=== PATIENT | female | born 1985 | race Caucasian/White ===

== ENCOUNTER 2017-10-19 02:06 | Emergency (ER) | payer SELFPAY ==
[~2017-10-19] VITALS: Ht 160 cm; Wt 72.6 kg
[~2017-10-19 02:06] MED LIST: ACHYD1T PO; ALBU8.5H2 IH; CODE-54 PO; DCS100C PO; HYDR-757 PO; ONDA2VIA IV; ONDA4TAB8 PO; PREN1TAB19 PO; XARELTO; [UNRECOGNIZED DRUG - CODE] TOP
[2017-10-19] MEDS ORDERED: LACTATED RINGERS 1,000 ML IV ONE (02:19)
[2017-10-19 02:27] LABS: BASOPHILS % (AUTO) 0 % (0-10); EOSINOPHILS # (AUTO) 0.1 10^3/uL (0.0-0.3); EOSINOPHILS % (AUTO) 1 % (0-10); HEMATOCRIT 37 % (35-52); HEMOGLOBIN 13.3 G/DL (11.5-16.0); LYMPHOCYTES # (AUTO) 4.1 X 10^3 (1.0-4.0); LYMPHOCYTES % (AUTO) 50 % (12-44); MEAN CORPUSCULAR HEMOGLOBIN 32 PG (25-34); MEAN CORPUSCULAR HGB CONC 36 G/DL (32-36); MEAN CORPUSCULAR VOLUME 90 FL (80-99); MEAN PLATELET VOLUME 10.5 FL (7.4-10.4); MONOCYTES # (AUTO) 0.5 X 10^3 (0.0-1.0); MONOCYTES % (AUTO) 6 % (0-12); NEUTROPHILS # (AUTO) 3.6 X 10^3 (1.8-7.8); NEUTROPHILS % (AUTO) 43 % (42-75); PLATELET COUNT 215 10^3/uL (130-400); RED BLOOD COUNT 4.15 10^6/uL (4.35-5.85); RED CELL DISTRIBUTION WIDTH 12.8 % (10.0-14.5); WHITE BLOOD COUNT 8.3 10^3/uL (4.3-11.0)
--- NOTE | 2017-10-19 02:40 | ED Trauma-Multisystem ---
General Chief Complaint: Trauma-Non Activation Stated Complaint: HEAD LAC Nursing Triage Note: SEE TRAUMA ASSESSMENT Source of Information: Patient, Caregiver Exam Limitations: Intoxication History of Present Illness Date Seen by Provider: Oct 19, 2017 Time Seen by Provider: 02:15 Initial Comments Here with report of falling out of the OR. Apparently her boyfriend had gone to pick her up and put her in the tract and she fell face first out of the truck onto the ground. Has abrasions to the forehead and a laceration over the bridge of the nose. Reports loss of consciousness for a minute or so after hitting the ground. Denies other injuries. Admits to drinking quite a bit tonight. States her tetanus is up-to-date. Occurred: Just Prior to Arrival (20 minutes ago) Severity: Moderate Pain/Injury Location: Face, Head Method of Injury: Direct Blow, Fall Loss of Consciousness: Brief (Seconds) Associated Symptoms (Fall): No Abdominal Pain, No Chest Pain, Confusion, Headache, Lightheadedness, No Neck Pain, Slurred Speech (alcohol intoxication), No Vision Changes Allergies and Home Medications Allergies Coded Allergies: No Known Drug Allergies (Verified , 06/09/08) Home Medications Chlorhexidine Gluconate 4,000 Ml Solution, 200 ML TOP BID Prescribed by: SASHA AVELAR on 04/06/15 1228 Hydrocodone/Acetaminophen 1 Each Tablet, 1 EACH PO Q4H PRN for PAIN Prescribed by: SASHA AVELAR on 04/06/15 1228 Ondansetron 4 Mg Tab.rapdis, 4 MG PO Q6H PRN for NAUSEA/VOMITING Prescribed by: SASHA AVELAR on 04/06/15 1228 Patient Home Medication List Home Medication List Reviewed: Yes Constitutional: see HPI, No chills, No fever Eyes: No Symptoms Reported Ears: No Symptoms Reported Nose: See HPI, Bloody Discharge, Serosanguinous Discharge Mouth: No Symptoms Reported Throat: No Symptoms to Report Respiratory: no symptoms reported Cardiovascular: No Symptoms Reported Gastrointestinal: No abdominal pain, No nausea, No vomiting Genitourinary: no symptoms reported Musculoskeletal: no symptoms reported Skin: see HPI, lesions, No rash All Other Systems Reviewed Negative Unless Noted: Yes Past Ryyqxgd-Elpmfs-Qxfjhd Hx Patient Social History Alcohol Use: Occasionally Uses Recreational Drug Use: No Smoking Status: Never a Smoker Recent Foreign Travel: No Contact w/Someone Who Travel: No Recent Infectious Disease Expo: No Recent Hopitalizations: No Physical Abuse: No Sexual Abuse: No Mistreated: No Fear: No Immunizations Up To Date Tetanus Booster (TDap): Unknown PED Vaccines UTD: Yes Date of Influenza Vaccine: Mar 29, 2014 Seasonal Allergies Seasonal Allergies: Yes Surgeries History of Surgeries: Yes (wisdom teeth 2009) Surgeries: Tubal Ligation Respiratory History of Respiratory Disorde: Yes Respiratory Disorders: Asthma Cardiovascular History of Cardiac Disorders: No Neurological History of Neurological Disord: No Reproductive System Hx Reproductive Disorders: No Sexually Transmitted Disease: No HIV/AIDS: No Female Reproductive Disorders: Denies AERIAL GUNNER History: Tubal Ligation Gastrointestinal History of Gastrointestinal Di: Yes Gastrointestinal Disorders: Gastroesophageal Reflux, Hemorrhoids, Irritable Bowel Musculoskeletal History of Musculoskeletal Dis: No Endocrine History of Endocrine Disorders: No HEENT Loss of Vision: Denies Hearing Impairment: Denies Cancer History of Cancer: No Psychosocial History of Psychiatric Problem: No Suicide Risk Score: 0 Integumentary History of Skin or Integumenta: No Blood Transfusions History of Blood Disorders: Yes (BLOOD CLOT/dvt) Adverse Reaction to a Blood Tr: No Reviewed Nursing Assessment Reviewed/Agree w Nursing PMH: Yes Family Medical History Family Medial History: Arthritis MATERNAL GDMA MATERNAL GDPA PATERNAL GDMA PATERNAL GDPA Asthma MATERNAL GDMA Glaucoma MATERNAL GDMA Neoplasm MATERNAL GDMA (BREAST AND LUNG- 54 YRS) Respiratory disorder MATERNAL GDMA (COPD AND EMPHYSEMA) Physical Exam Vital Signs Vital Signs - First Documented 10/19/17 02:12 Temp 97.3 Pulse 96 Resp 20 B/P (MAP) 115/84 (94) Pulse Ox 98 O2 Delivery Room Air Temperature (Fahrenheit): 97.3 General Appearance: No Apparent Distress, WD/WN Head: Active Bleeding (oozing wounds to the forehead and nose), Ecchymosis, Other (abrasion to the forehead and nose) Ears, Nose, Throat: Other (2 cm laceration over the bridge of the nose with abrasions to distal part of the nose and forehead) Neck: Full Range of Motion, Normal Inspection, Non Tender, Supple Cardiovascular: Regular Rate, Rhythm, No Murmur Respiratory: Lungs Clear, Normal Breath Sounds Gastrointestinal: Non Tender, Soft Back: Normal Inspection, No CVA Tenderness, No Vertebral Tenderness Extremity: Normal Range of Motion, Non Tender Neurologic/Psychiatric: Alert, Oriented x3 Skin: Ecchymosis, Erythema, Other (abrasions to the face as described above) Adriel Coma Score Best Eye Response ([place]): (4) Open Spontaneously Best Verbal Response ([place]): (5) Oriented Best Motor Response ([place]): (6) Obeys Commands Laceration Repair : Wound Location: Nose Other Wound Location Bridge of nose Wound Length (cm): 2 Wound's Depth, Shape: irregular, flap Irrigated w/ Saline (ccs): 50 Betadine Prep?: No (Hibiclens) Anesthesia: 1% Lidocaine Volume Anesthetic (ccs): 5 Wound Debrided: minimal Suture: Prolene Suture Size: 5-0, 6-0 Number of Sutures: 7 Layer Closure?: 1 Number Deep Layer Sutures: 0 Sterile Dressing Applied?: Yes Progress 3 x 5-0 proline sutures placed to pin flap back in good position and then 4 x 6- 0 Prolene sutures placed to provide good approximation. Tolerated procedure well with no complications. Covered with antibiotic ointment and dressing. Progress/Results/Core Measures Results/Orders Lab Results Laboratory Tests Test 10/19/17 02:20 Range/Units White Blood Count 8.3 4.3-11.0 10^3/uL Red Blood Count 4.15 L 4.35-5.85 10^6/uL Hemoglobin 13.3 11.5-16.0 G/DL Hematocrit 37 35-52 % Mean Corpuscular Volume 90 80-99 FL Mean Corpuscular Hemoglobin 32 25-34 PG Mean Corpuscular Hemoglobin Concent 36 32-36 G/DL Red Cell Distribution Width 12.8 10.0-14.5 % Platelet Count 215 130-400 10^3/uL Mean Platelet Volume 10.5 H 7.4-10.4 FL Neutrophils (%) (Auto) 43 42-75 % Lymphocytes (%) (Auto) 50 H 12-44 % Monocytes (%) (Auto) 6 0-12 % Eosinophils (%) (Auto) 1 0-10 % Basophils (%) (Auto) 0 0-10 % Neutrophils # (Auto) 3.6 1.8-7.8 X 10^3 Lymphocytes # (Auto) 4.1 H 1.0-4.0 X 10^3 Monocytes # (Auto) 0.5 0.0-1.0 X 10^3 Eosinophils # (Auto) 0.1 0.0-0.3 10^3/uL Basophils # (Auto) 0.0 0.0-0.1 10^3/uL Sodium Level 135 135-145 MMOL/L Potassium Level 3.4 L 3.6-5.0 MMOL/L Chloride Level 101 98-107 MMOL/L Carbon Dioxide Level 19 L 21-32 MMOL/L Anion Gap 15 H 5-14 MMOL/L Blood Urea Nitrogen 10 7-18 MG/DL Creatinine 0.78 0.60-1.30 MG/DL Estimat Glomerular Filtration Rate > 60 BUN/Creatinine Ratio 13 Glucose Level 97 70-105 MG/DL Calcium Level 9.3 8.5-10.1 MG/DL Total Bilirubin 0.3 0.1-1.0 MG/DL Aspartate Amino Transf (AST/SGOT) 19 5-34 U/L Alanine Aminotransferase (ALT/SGPT) 18 0-55 U/L Alkaline Phosphatase 51 40-136 U/L Total Protein 7.6 6.4-8.2 GM/DL Albumin 4.6 H 3.2-4.5 GM/DL Serum Test, Qualitative NEGATIVE NEGATIVE Serum Alcohol 263 H <10 MG/DL My Orders Orders - VANESSA HALL MD Ct Head/Face/Cervical Wo (10/19/17 02:19) Alcohol (10/19/17 02:19) Cbc With Automated Diff (10/19/17 02:19) Comprehensive Metabolic Panel (10/19/17 02:19) Hcg,Qualitative Serum (10/19/17 02:19) Saline Lock/Iv-Start (10/19/17 02:19) Lactated Ringers (Lr 1000 Ml Iv Solution (10/19/17 02:19) Let Solution (Let Solution) (10/19/17 03:10) Lidocaine 1% (Xylocaine 1%) (10/19/17 03:15) Medications Given in ED Current Medications Medications Dose Ordered Sig/Rani Route Start Time Stop Time Status Last Admin Dose Admin Lactated Ringer's 1,000 ml @ 0 mls/hr Q0M ONCE IV 10/19/17 02:19 10/19/17 02:21 DC 10/19/17 03:13 1,000 MLS/HR Lidocaine HCl 50 ml ONCE ONCE IJ 10/19/17 03:15 10/19/17 03:16 DC 10/19/17 03:17 50 ML Vital Signs/I&O Vital Sign - Last 12Hours 10/19/17 02:12 Temp 97.3 Pulse 96 Resp 20 B/P (MAP) 115/84 (94) Pulse Ox 98 O2 Delivery Room Air Blood Pressure Mean: 94 Progress Note : Progress Note Seen and evaluated. IV, labs, normal saline [address] head, face and neck ordered. Monitor patient. 0420: CT reports noted. Wound closed by me with good approximation. There are multiple abrasions on the forehead, nose and face including the chin and upper lip. Superficial lacerations noted to the forehead but these are not amiable to suturing. Antibiotic ointment placed over wounds and lacerations cover with dressing. Discharged home with return precautions. Patient verbalize understanding instructions and agreement with plan. Diagnostic Imaging Diagonstic Imaging: CT Plain Films/CT/US/NM/MRI: facial bones, c-spine, head Comments No acute intracranial findings. Small scalp hematoma overlying the frontal bone. Nondisplaced nasal bone fracture. No acute fractures or subluxation of the C-spine noted. Per radiology read. Reviewed: Reviewed Night Hawk Study, Reviewed by Me Departure Impression Impression: Primary Impression: Facial laceration Qualified Codes: S01.81XA - Laceration without foreign body of other part of head, initial encounter Additional Impressions: Head injury Qualified Codes: S09.90XA - Unspecified injury of head, initial encounter Facial abrasion Qualified Codes: S00.81XA - Abrasion of other part of head, initial encounter Disposition: 01 HOME, SELF-CARE Condition: Improved Departure-Patient Inst. Decision time for Depature: 04:22 Referrals: YANELI COLLADO MD (PCP/Family) Primary Care Physician Patient Instructions: Laceration Repair With Stitches (DC), Minor Head Injury ( DC), Skin Abrasions (DC) Add. Discharge Instructions: All discharge instructions reviewed with patient and/or family. Voiced understanding. You may cover wounds with antibiotic ointment twice daily for the next several days and then as needed. You should prevent sunburn to the face and exposure to direct sunlight for the next several months to a year to decrease scarring. Sutures out in 5 days. You may gently wash wounds but do not soak for prolonged periods of time in a bathtub, pool or other body of water. Return for worse pain, fever, vomiting, weakness, breathing problems or other concerns as needed. VANESSA HALL MD Oct 19, 2017 02:40
[2017-10-19 02:47] LABS: ALANINE AMINOTRANSFERASE 18 U/L (0-55); ALBUMIN 4.6 GM/DL (3.2-4.5); ALKALINE PHOSPHATASE 51 U/L (40-136); BILIRUBIN,TOTAL 0.3 MG/DL (0.1-1.0); BUN/CREATININE RATIO 13; CALCIUM 9.3 MG/DL (8.5-10.1); CARBON DIOXIDE 19 MMOL/L (21-32); CHLORIDE 101 MMOL/L (98-107); CREATININE SERUM 0.78 MG/DL (0.60-1.30); GFR ESTIMATED > 60; GLUCOSE 97 MG/DL (70-105); POTASSIUM 3.4 MMOL/L (3.6-5.0); SODIUM 135 MMOL/L (135-145); TOTAL PROTEIN 7.6 GM/DL (6.4-8.2)
[2017-10-19] MEDS ORDERED: L.E.T. SYRINGE 5 ML MM STA (03:10)
[2017-10-19] MEDS ORDERED: LIDOCAINE 1% INJ 50 ML (XYLOCAINE) VIAL IJ ONE (03:15)
[2017-10-19 04:27] VITALS: BP 118/78
--- NOTE | 2017-10-19 07:28 | Diagnostic Imaging Report ---
Clinical indication: Patient fell out of truck and landed face first. Exam: Axial Head CT without IV contrast. Axial Maxillofacial CT scan without IV contrast with sagittal and coronal reformations. Axial CT scan of the cervical spine with sagittal and coronal reformations. Comparison: None. Findings: Head CT: There is no evidence of acute cerebral infarct, intracranial hemorrhage, or gross mass effect. The brain parenchymal volume appears appropriate for patient's age. There is normal carlos-white matter distinction. There is no significant midline shift or herniation. There is no evidence of hydrocephalus. The basal cisterns are unremarkable. Maxillofacial CT: There is a small amount of extracranial soft tissue swelling in the right frontal region and adjacent to the nose. There is a minimally impacted nondisplaced fracture involving the right and left nasal bone region. It appears that there may be soft tissue laceration adjacent to the area, as well. There is no other skull or maxillofacial fracture seen. There are large amounts of fluid and mucosal thickening involving the sphenoid sinus. There is mild mucosal thickening involving ethmoid sinus. There is minimal mucosal thickening involving both maxillary sinuses. Temporal bone structures show no significant abnormality. The orbits and globes are unremarkable. Cervical spine: Is no evidence of acute cervical spine fracture or dislocation. There is no significant bony central spinal canal or neural foraminal narrowing. Visualized upper lung evans are clear. The neck soft tissue structures show no significant abnormality. Impression: 1: There is a nondisplaced nasal bone fracture seen. There is no other skull or maxillofacial fracture. 2: There is extracranial soft tissue swelling in the right frontal region and adjacent to the nose. The orbits and globes are intact. 3: There is no evidence of acute intracranial process or intracranial hemorrhage. 4: There is no acute cervical spine fracture or dislocation. I agree with [employer] report. Dictated by: Dictated on workstation # [id number]
--- OUTSIDE RECORDS SUMMARY | 2017-10-19 08:33 | XMS REPORT | Continuity of Care Document ---
Author Author [facility] Organization [facility] Address Unknown Phone Unavailable Allergies Active Description Code Type Severity Reaction Onset Reported/Identified Relationship to Patient Clinical Status Yes No Known Drug Allergies [id number] Drug Allergy Unknown N/A 06/09/2008 Medications There is no data. Problems Date Dx Coded Attending Type Code Diagnosis Diagnosed By 04/01/2011 Ot 530.81 04/06/2014 YANELI COLLADO MD Ot 664.11 04/06/2014 YANELI COLLADO MD Ot V03.82 04/06/2014 YANELI COLLADO MD Ot V06.1 04/06/2014 YANELI COLLADO MD Ot V27.0 06/02/2014 YANELI COLLADO MD Ot V28.81 09/26/2014 YANELI COLLADO MD Ot 453.40 09/26/2014 YANELI COLLADO MD Ot 453.41 10/10/2014 YANLEI COLLADO MD Ot V28.89 10/10/2014 YANELI COLLADO MD Ot V28.81 11/01/2014 ISABEL SU, VANESSA Alba Ot 719.46 12/19/2014 YANELI COLLADO MD Ot V28.89 12/19/2014 YANELI COLLADO MD Ot V28.81 01/25/2015 YANELI COLLADO MD Ot V12.51 02/03/2015 YANELI COLLADO MD Ot V12.51 04/06/2015 YANELI COLLADO MD Ot V28.89 04/06/2015 YANELI COLLADO MD Ot V28.81 04/06/2015 YANELI COLLADO MD Ot V12.51 04/06/2015 SASHA AVELAR APRN Ot 338.18 04/06/2015 SASHA AVELAR APRN Ot 704.8 04/06/2015 SASHA AVELAR APRN Ot 782.1 08/30/2015 YANELI COLLADO MD Ot V28.89 08/30/2015 YANELI COLLADO MD Ot V28.81 08/30/2015 YANELI COLLADO MD Ot V12.51 08/31/2015 YANELI COLLADO MD Ot R60.0 08/31/2015 YANELI COLLADO MD Ot Z86.718 09/12/2015 YANELI COLLADO MD Ot R60.0 09/12/2015 YANELI COLLADO MD Ot Z86.718 Procedures There is no data. Results There is no data. Encounters ACCT No. Visit Date/Time Discharge Status Pt. Type Provider Facility Loc./Unit Complaint [id number] 08/30/2015 10:52:00 08/30/2015 23:59:59 CLS Outpatient YANELI COLLADO MD [facility] RAD [id number] 04/06/2015 11:27:00 04/06/2015 12:40:00 DIS Emergency SASHA AVELAR APRN [facility] ER [id number] 01/18/2015 11:51:00 01/18/2015 23:59:59 CLS Outpatient YANELI COLLADO MD [facility] RAD [id number] 11/01/2014 08:57:00 11/01/2014 10:28:00 DIS Emergency VANESSA HALL MD [facility] ER [id number] 09/23/2014 21:45:00 09/26/2014 08:16:00 DIS Inpatient YANELI COLLADO MD [facility] 4TH [id number] 04/05/2014 06:09:00 04/06/2014 15:00:00 DIS Inpatient YANELI COLLADO MD [facility] LD [id number] 12/02/2013 12:01:00 12/02/2013 23:59:59 CLS Outpatient YANELI COLLADO MD [facility] RAD [id number] 09/02/2013 13:42:00 09/02/2013 23:59:59 CLS Outpatient TOBIAS SU, YANELI [facility] [id number] 04/01/2011 10:31:00 Document Registration [id number] 04/06/2015 11:27:55 ACT Document Registration
== END 2017-10-19 04:27 | disposition home or self-care (01) ==
LOC: EDUNIT# 02:06 → ER 02:09
DX: S09.90XA Unspecified injury of head, initial encounter (principal); S01.21XA Laceration without foreign body of nose, initial encounter; R40.2142 Coma scale, eyes open, spontaneous, at arrival to emergency department; R40.2252 Coma scale, best verbal response, oriented, at arrival to emergency department; R40.2362 Coma scale, best motor response, obeys commands, at arrival to emergency department; K21.9 Gastro-esophageal reflux disease without esophagitis; J45.909 Unspecified asthma, uncomplicated; Z87.19 Personal history of other diseases of the digestive system; Z98.51 Tubal ligation status; V68.6XXA Passenger in heavy transport vehicle injured in noncollision transport accident in traffic accident, initial encounter
CPT/HCPCS: 12011; 36415; 70450; 70486; 72125; 80053; 80320; 84703; 85025; 96360

== ENCOUNTER 2019-05-16 16:02 | Emergency (ER) | payer SELFPAY ==
[~2019-05-16] VITALS: Ht 160 cm; Wt 77.2 kg
[~2019-05-16 16:02] MED LIST changes: +ACHD5005 PO; +AMOX-355 PO; +HYDR-4226 PO; -HYDR-757 PO
--- NOTE | 2019-05-16 16:06 | NUR ---
ATTEMPT TO CALL PT BACK ET PT NOT IN WAITING ROOM.
[2019-05-16] MEDS ORDERED: NS IV 1000 ML 1,000 ML IV SCH (16:39)
[2019-05-16 16:52] LABS: BASOPHILS # (AUTO) 0.1 10^3/uL (0.0-0.1); BASOPHILS % (AUTO) 1 % (0-10); EOSINOPHILS # (AUTO) 0.1 10^3/uL (0.0-0.3); EOSINOPHILS % (AUTO) 1 % (0-10); HEMATOCRIT 39 % (35-52); HEMOGLOBIN 13.2 G/DL (11.5-16.0); LYMPHOCYTES # (AUTO) 2.2 X 10^3 (1.0-4.0); LYMPHOCYTES % (AUTO) 28 % (12-44); MEAN CORPUSCULAR HEMOGLOBIN 30 PG (25-34); MEAN CORPUSCULAR HGB CONC 34 G/DL (32-36); MEAN CORPUSCULAR VOLUME 91 FL (80-99); MEAN PLATELET VOLUME 9.7 FL (7.4-10.4); MONOCYTES # (AUTO) 0.7 X 10^3 (0.0-1.0); MONOCYTES % (AUTO) 10 % (0-12); NEUTROPHILS # (AUTO) 4.7 X 10^3 (1.8-7.8); NEUTROPHILS % (AUTO) 60 % (42-75); PLATELET COUNT 367 10^3/uL (130-400); RED CELL DISTRIBUTION WIDTH 13.5 % (10.0-14.5); WHITE BLOOD COUNT 7.8 10^3/uL (4.3-11.0)
[2019-05-16] MEDS ORDERED: HOLD METFORMIN - RECEIVED CONTRAST 20 ML VIAL IV SCH (17:00)
[2019-05-16] MEDS ORDERED: CATHETER FLUSH 10 ML SYR IV PRN (17:00)
[2019-05-16] MEDS ORDERED: NS 100 ML (IVPB) BAG IV ONE (17:00)
[2019-05-16] MEDS ORDERED: IOHEXOL 350 MG/ML 100 ML (OMNIPAQUE 350) VIAL IV ONE (17:00)
[2019-05-16 17:10] LABS: ALANINE AMINOTRANSFERASE 87 U/L (0-55); ALBUMIN 3.5 GM/DL (3.2-4.5); ALKALINE PHOSPHATASE 256 U/L (40-136); BILIRUBIN,TOTAL 0.5 MG/DL (0.1-1.0); BUN/CREATININE RATIO 8; CALCIUM 9.4 MG/DL (8.5-10.1); CARBON DIOXIDE 23 MMOL/L (21-32); CHLORIDE 102 MMOL/L (98-107); CREATININE SERUM 0.66 MG/DL (0.60-1.30); GFR ESTIMATED > 60; GLUCOSE 95 MG/DL (70-105); POTASSIUM 3.1 MMOL/L (3.6-5.0); SODIUM 141 MMOL/L (135-145); TOTAL PROTEIN 7.3 GM/DL (6.4-8.2)
[2019-05-16 17:17] LABS: BILIRUBIN,URINE NEGATIVE (NEGATIVE); CLARITY,URINE CLEAR; COLOR,URINE YELLOW; GLUCOSE, URINE (UA) NEGATIVE (NEGATIVE); KETONES,URINE 1+ (NEGATIVE); LEUKOCYTE ESTERASE ,URINE 1+ (NEGATIVE); NITRITE,URINE NEGATIVE (NEGATIVE); PH,URINE 7 (5-9); PROTEIN,URINE 1+ (NEGATIVE)
[2019-05-16 17:23] LABS: BACTERIA,URINE TRACE /HPF; RBC,URINE 0-2 /HPF; WBC,URINE 0-2 /HPF
[2019-05-16] MEDS ORDERED: POTASSIUM CL 10MEQ/50ML IVPB 50 ML IV ONE (17:30)
--- NOTE | 2019-05-16 17:46 | Diagnostic Imaging Report ---
PROCEDURE: CT angiography of the chest with contrast. TECHNIQUE: Multiple contiguous axial images were obtained through the chest after uneventful bolus administration of intravenous contrast. 3D reconstructed CTA MIP acquisitions were also performed. Auto Exposure Controls were utilized during the CT exam to meet ALARA standards for radiation dose reduction. INDICATION: Febrile. Low-grade fever. Chest pain and shortness of breath. FINDINGS: Contrast opacification of the aorta with no evidence of aortic aneurysm or dissection. Pulmonary arteries are well opacified. There are no filling defects to indicate pulmonary emboli. There has been dense consolidated infiltrate with air bronchograms developing in the lower lobes, bilaterally, with moderate bibasilar pleural effusions when compared to the previous CT of the abdomen from 05/11/2019. No mediastinal or hilar adenopathy of pathologic size. No pneumothorax. No bony abnormality. Hepatomegaly with hepatic steatosis noted also some splenomegaly. IMPRESSION: 1. No evidence of pulmonary emboli or aortic dissection. 2. Development of bilateral consolidated lower lobe infiltrate with moderate bilateral pleural effusions. These were not present on CT scan of the abdomen of 05/11/2019. Dictated by: Dictated on workstation # [id number]
--- NOTE | 2019-05-16 17:54 | ED Dyspnea ---
General Chief Complaint: Post OP Complications/Pain Stated Complaint: POST APPY/DIARRHEA/CHILLS Nursing Triage Note: STATES SHE HAD HER APPENDIX OUT ON FRIDAY AND SENT HOME ON FRIDAY. LOW GRADE FEVER SINCE ET TAKING ROUND THE CLOCK IBUPROFEN AND HYDROCODONE. PT STATES SHE HAS BEEN HAVING DIARRHEA ALL DAY TODAY AND FEELS AWFUL. History of Present Illness Date Seen by Provider: May 16, 2019 Time Seen by Provider: 16:15 Initial Comments 33-year-old female presents after having a ruptured appendix and appendectomy on 05/12/19. She reports a history of asthma but no recent need for an inhaler. She reports fever up to 100.4 today. She is taking Hydrocodone (last dose 1000 this morning). She took Ibuprofen at 1400. She is afebrile on presentation here. She reports 2 episodes of diarrhea yesterday and up to 6 episodes of diarrhea today. Timing/Duration: 4-6 Hours Prior Episodes/Possible Cause: No Prior Episodes Associated Symptoms: Fever, Pain (left upper quadrant), Weakness Allergies and Home Medications Allergies Coded Allergies: No Known Drug Allergies (Verified , 06/09/08) Home Medications Albuterol Sulfate 1 Puff Puff, 2 PUFF INH Q4H 1 PUFF = 90 MCG Prescribed by: DELORIS CERVANTES on 05/16/19 1825 Amoxicillin/Potassium Clav 1 Each Tablet, 1 EACH PO TID Prescribed by: DAVION SHEA on 05/13/19 1158 Hydrocodone Bit/Acetaminophen 1 Tab Tab, 1 TAB PO Q6H PRN for PAIN-MODERATE Prescribed by: DAVION SHEA on 05/13/19 1158 Patient Home Medication List Home Medication List Reviewed: Yes Review of Systems Review of Systems Constitutional: no symptoms reported, see HPI Gastrointestinal: see HPI, abdominal pain, diarrhea : No All Other Systems Reviewed Negative Unless Noted: Yes Past Jkrgkhy-Cjrhaw-Iiwuyw Hx Past Med/Social Hx: Reviewed Nursing Past Med/Soc Hx Patient Social History Alcohol Use: Denies Use Recreational Drug Use: No Smoking Status: Never a Smoker Recent Foreign Travel: No Contact w/Someone Who Travel: No Recent Infectious Disease Expo: No Recent Hopitalizations: No Immunizations Up To Date Tetanus Booster (TDap): Unknown PED Vaccines UTD: Yes Date of Influenza Vaccine: Mar 29, 2014 Seasonal Allergies Seasonal Allergies: Yes Past Medical History Surgeries: Yes (wisdom teeth 2010, tubal ligation, nasal, ) Adenoidectomy, Tubal Ligation Respiratory: Yes Asthma Cardiac: Yes Deep Vein Thrombosis Neurological: No Reproductive Disorders: No Female Reproductive Disorders: Denies CLINICAL RESEARCH PHYSICIAN History: Tubal Ligation Sexually Transmitted Disease: No HIV/AIDS: No Genitourinary: No Gastrointestinal: Yes Gastroesophageal Reflux, Hemorrhoids, Irritable Bowel Musculoskeletal: No Endocrine: No HEENT: No Loss of Vision: Denies Hearing Impairment: Denies Cancer: No Psychosocial: No Integumentary: No Blood Disorders: No Adverse Reaction/Blood Tranf: No Family Medical History Arthritis MATERNAL GDMA MATERNAL GDPA PATERNAL GDMA PATERNAL GDPA Asthma MATERNAL GDMA Glaucoma MATERNAL GDMA Neoplasm MATERNAL GDMA (BREAST AND LUNG- 52 YRS) Respiratory disorder MATERNAL GDMA (COPD AND EMPHYSEMA) No Family History of: AIDS Abdominal aortic aneurysm Star's disease Alcoholism Alzheimer's disease Aphasia Cancer of mouth Cardiovascular disease Cataracts Colon cancer Completed stroke Congenital disease Congenital heart disease Coronary thrombosis Cystic fibrosis Deafness or hearing loss Dementia Diabetes mellitus Drug abuse Dysphasia Fibrocystic disease of breast Gastroenteritis Headache disorder Hypercholesterolemia Hypertension Infertility Kidney disease Myocardial infarction Not obtainable due to adoption Osteoporosis Parkinson's disease Prostate cancer Psychosocial problem Seizure disorder Severe allergy Thyroid disease Tuberculosis Visual disorder Heart Disease, Stroke Physical Exam Vital Signs Vital Signs - First Documented 05/16/19 05/16/19 05/16/19 16:07 18:00 18:24 Temp 36.7 Pulse 96 Resp 16 B/P (MAP) 127/88 (101) Pulse Ox 97 O2 Delivery Room Air O2 Flow Rate 2.00 FiO2 99 Capillary Refill : Less Than 3 Seconds Height, Weight, BMI Height: 5'3.00" Weight: 160lbs. 0.0oz. 72.220283fb; 30.00 BMI Method:Stated General Appearance: WD/WN, Anxious HEENT: PERRL/EOMI, TMs Normal, Normal ENT Inspection, Pharynx Normal Neck: Full Range of Motion, Normal Inspection, Non Tender, Supple Respiratory: Chest Non Tender, Normal Breath Sounds, Decreased Breath Sounds Cardiovascular: Regular Rate, Rhythm, No Edema, Normal Peripheral Pulses Gastrointestinal: Normal Bowel Sounds, Soft; No Distended, No Guarding; Tenderness (epigastric. Wound sites without erythema, increased tenderness, or discharge.) Extremity: Normal Capillary Refill, Normal Inspection, Normal Range of Motion Neurologic/Psychiatric: Alert, Oriented x3, No Motor/Sensory Deficits, Normal Mood/Affect Focused Exam Lactate Level 05/16/19 17:07: Lactic Acid Level 0.87 Lactic Acid Level Laboratory Tests Test 05/16/19 17:07 Lactic Acid Level 0.87 MMOL/L (0.50-2.00) Procedures/Interventions Suture Size: 5-0, 6-0 Progress/Results/Core Measures Results/Orders Lab Results Laboratory Tests Test 05/16/19 16:40 05/16/19 17:07 Range/Units White Blood Count 7.8 4.3-11.0 10^3/uL Red Blood Count 4.34 L 4.35-5.85 10^6/uL Hemoglobin 13.2 11.5-16.0 G/DL Hematocrit 39 35-52 % Mean Corpuscular Volume 91 80-99 FL Mean Corpuscular Hemoglobin 30 25-34 PG Mean Corpuscular Hemoglobin Concent 34 32-36 G/DL Red Cell Distribution Width 13.5 10.0-14.5 % Platelet Count 367 130-400 10^3/uL Mean Platelet Volume 9.7 7.4-10.4 FL Neutrophils (%) (Auto) 60 42-75 % Lymphocytes (%) (Auto) 28 12-44 % Monocytes (%) (Auto) 10 0-12 % Eosinophils (%) (Auto) 1 0-10 % Basophils (%) (Auto) 1 0-10 % Neutrophils # (Auto) 4.7 1.8-7.8 X 10^3 Lymphocytes # (Auto) 2.2 1.0-4.0 X 10^3 Monocytes # (Auto) 0.7 0.0-1.0 X 10^3 Eosinophils # (Auto) 0.1 0.0-0.3 10^3/uL Basophils # (Auto) 0.1 0.0-0.1 10^3/uL Sodium Level 141 135-145 MMOL/L Potassium Level 3.1 L 3.6-5.0 MMOL/L Chloride Level 102 98-107 MMOL/L Carbon Dioxide Level 23 21-32 MMOL/L Anion Gap 16 H 5-14 MMOL/L Blood Urea Nitrogen 5 L 7-18 MG/DL Creatinine 0.66 0.60-1.30 MG/DL Estimat Glomerular Filtration Rate > 60 BUN/Creatinine Ratio 8 Glucose Level 95 70-105 MG/DL Calcium Level 9.4 8.5-10.1 MG/DL Corrected Calcium 9.8 8.5-10.1 MG/DL Total Bilirubin 0.5 0.1-1.0 MG/DL Aspartate Amino Transf (AST/SGOT) 49 H 5-34 U/L Alanine Aminotransferase (ALT/SGPT) 87 H 0-55 U/L Alkaline Phosphatase 256 H 40-136 U/L Total Protein 7.3 6.4-8.2 GM/DL Albumin 3.5 3.2-4.5 GM/DL Amylase Level 49 25-125 U/L Lipase 91 H 8-78 U/L Urine Color YELLOW Urine Clarity CLEAR Urine pH 7 5-9 Urine Specific Monitor 1.005 L 1.016-1.022 Urine Protein 1+ H NEGATIVE Urine Glucose (UA) NEGATIVE NEGATIVE Urine Ketones 1+ H NEGATIVE Urine Nitrite NEGATIVE NEGATIVE Urine Bilirubin NEGATIVE NEGATIVE Urine Urobilinogen NORMAL NORMAL MG/DL Urine Leukocyte Esterase 1+ H NEGATIVE Urine RBC (Auto) 2+ H NEGATIVE Urine RBC 0-2 /HPF Urine WBC 0-2 /HPF Urine Squamous Epithelial Cells 10-25 H /HPF Urine Crystals NONE /LPF Urine Bacteria TRACE /HPF Urine Casts NONE /LPF Urine Mucus SMALL H /LPF Urine Culture Indicated NO Lactic Acid Level 0.87 0.50-2.00 MMOL/L My Orders Orders - DELORIS CERVANTES Cbc With Automated Diff (05/16/19 16:38) Comprehensive Metabolic Panel (05/16/19 16:38) Ua Culture If Indicated (05/16/19 16:38) Ed Iv/Invasive Line Start (05/16/19 16:39) Ns Iv 1000 Ml (Sodium Chloride 0.9%) (05/16/19 16:39) Lactic Acid Analyzer (05/16/19 16:57) Ct Angio Chest W (05/16/19 16:57) Iohexol Injection (Omnipaque 350 Mg/Ml 1 (05/16/19 17:00) Received Contrast (Hold Metformin- Contr (05/16/19 17:00) Sodium Chloride Flush (Catheter Flush Sy (05/16/19 17:00) Ns (Ivpb) (Sodium Chloride 0.9% Ivpb Bag (05/16/19 17:00) Potassium Cl 10meq/50ml Ivpb (Kcl 10 Meq (05/16/19 17:30) Albuterol/Ipra Inhalation Soln (Duoneb I (05/16/19 18:00) Svn Small Volume Nebulizer (05/16/19 17:54) Hydrocodone/Apap 7.5/325 Tab (Lortab 7. (05/16/19 18:30) Amylase (05/16/19 18:39) Lipase (05/16/19 18:39) Rx-Albuterol Inhaler (Rx-Proair) (05/16/19 19:04) Medications Given in ED Current Medications Medications Dose Ordered Sig/Rani Route Start Time Stop Time Status Last Admin Dose Admin Acetaminophen/ Hydrocodone Bitart 1 ea ONCE ONCE PO 05/16/19 18:30 05/16/19 18:31 DC 05/16/19 18:33 1 EA Albuterol/ Ipratropium 3 ml ONCE ONCE INH 05/16/19 18:00 05/16/19 18:01 DC 05/16/19 18:00 3 ML Iohexol 100 ml ONCE ONCE IV 05/16/19 17:00 05/16/19 17:01 DC 05/16/19 17:34 69 ML Potassium Chloride 50 ml @ 50 mls/hr ONCE ONCE IV 05/16/19 17:30 05/16/19 18:29 DC 05/16/19 17:52 50 MLS/HR Sodium Chloride 10 ml NEEDED PRN IV 05/16/19 17:00 05/16/19 19:36 DC 05/16/19 17:34 10 ML Sodium Chloride 100 ml ONCE ONCE IV 05/16/19 17:00 05/16/19 17:01 DC 05/16/19 17:34 80 ML Vital Signs/I&O 05/16/19 05/16/19 05/16/19 16:07 18:00 18:24 Temp 36.7 Pulse 96 Resp 16 B/P (MAP) 127/88 (101) Pulse Ox 97 99 98 O2 Delivery Room Air Nasal Cannula Nasal Cannula O2 Flow Rate 2.00 2.00 FiO2 99 Blood Pressure Mean: 101 Progress Progress Note : Time: 16:15 Progress Note Patient seen and evaluated, will obtain labs and CT angiogram the chest. 1700 labs essentially normal with no elevation. SaO2 95-97% on 2 L per NC. Patient reports slight improvement in breathing, taking deeper breaths. Rate 20- 26 breaths/min when shallow, when taking deeper breaths 16-20 breaths/min. [address] Amaro, reviewed assessment and labs. Continues to be afebrile. Offered patient admission vs discharge to home, she would prefer to go home. 1820 Temp 37.0 C, Was able to get to 40% of IS goal with RT. Hydrocodone for pain, last dose [id number] this am. 1900 Patient reports improved pain control, taking deeper breaths and able to get to 75% of goals on IS. Will remove O2 and watch Sa02. 1920 SaO2 95-96% on Room Air. Patient reports no further dyspnea or shallow breathing, pain better. Has remained afebrile, with no diarrhea. Diagnostic Imaging Diagonstic Imaging: CT Plain Films/CT/US/NM/MRI: chest Comments NAME: ZENA PORTILLO MED REC#: [id number] PT STATUS: REG ER : 1985 PHYSICIAN: DELORIS CERVANTES ADMIT DATE: 05/16/19/ER Draft Date of Exam:05/16/19 CT ANGIO CHEST W PROCEDURE: CT angiography of the chest with contrast. TECHNIQUE: Multiple contiguous axial images were obtained through the chest after uneventful bolus administration of intravenous contrast. 3D reconstructed CTA MIP acquisitions were also performed. Auto Exposure Controls were utilized during the CT exam to meet ALARA standards for radiation dose reduction. INDICATION: Febrile. Low-grade fever. Chest pain and shortness of breath. FINDINGS: Contrast opacification of the aorta with no evidence of aortic aneurysm or dissection. Pulmonary arteries are well opacified. There are no filling defects to indicate pulmonary emboli. There has been dense consolidated infiltrate with air bronchograms developing in the lower lobes, bilaterally, with moderate bibasilar pleural effusions when compared to the previous CT of the abdomen from 05/11/2019. No mediastinal or hilar adenopathy of pathologic size. No pneumothorax. No bony abnormality. Hepatomegaly with hepatic steatosis noted also some splenomegaly. IMPRESSION: 1. No evidence of pulmonary emboli or aortic dissection. 2. Development of bilateral consolidated lower lobe infiltrate with moderate bilateral pleural effusions. These were not present on CT scan of the abdomen of 05/11/2019. Dictated on workstation # [id number] Dict: 05/16/19 1741 Trans: 05/16/191745 [facility] [id number] Interpreted by: DAVION GERONIMO MD Electronically signed by: Reviewed: Reviewed by Me Departure Impression Primary Impression: Post-operative pain Disposition: 01 HOME, SELF-CARE Condition: Improved Departure-Patient Inst. Decision time for Depature: 19:30 Referrals: DAVION SHEA DANIEL J MD (PCP/Family) Primary Care Physician Patient Instructions: Postoperative Pain (DC) Add. Discharge Instructions: Take your pain medication as prescribed by Dr. Shea. You may also take ibuprofen 600 mg every 8 hours. Take antibiotics as prescribed. Follow-up with Dr. Shea tomorrow if symptoms are not improving or worsen, call his office for an appointment. Use your inhaler, one half wait 5 minutes and then do a second puff every 4 hours. Continue to use her incentive spirometer 5-10 times every hour while awake. Increase your ambulation, walk every hour, while awake. Eat clear liquid diet for next 6-8 hours, then bland diet. Use over the counter anti-diarrheal medicine, as needed if diarrhea returns. Use pillow to splint abdominal pain, when you use your incentive spirometer or walk. Return to emergency department for fever greater than 101 not relieved by your pain medicine and ibuprofen, persistent difficulty breathing, or new concerns. Scripts Albuterol Sulfate (VENTOLIN HFA) 1 Puff Puff 2 PUFF INH Q4H for 7 Days, #1 INHALER 0 Refills 1 PUFF = 90 MCG Prov: DELORIS CERVANTES 05/16/19 Copy Copies To 1: DAVION SHEA AMY ARNP May 16, 2019 17:53
[2019-05-16] MEDS ORDERED: RT-ALBUTEROL/IPRATROPIUM 3 ML (DUONEB) VIAL INH ONE (18:00)
[2019-05-16] MEDS ORDERED: RT-ALBUINH INH (18:25)
[2019-05-16] MEDS ORDERED: HYDROcodone/APAP 7.5 MG/325 MG (LORTAB, LORCET PLUS) TABLET PO ONE (18:30)
[2019-05-16 18:55] LABS: AMYLASE 49 U/L (25-125); LIPASE 91 U/L (8-78)
[2019-05-16] MEDS ORDERED: RX-ALBUTEROL INHALER (PROAIR) 8.5 GM IH STA (19:04)
[2019-05-16 19:35] VITALS: BP 127/88
== END 2019-05-16 19:35 | disposition home or self-care (01) ==
LOC: EDUNIT# 16:02 → ER 16:03
DX: G89.18 Other acute postprocedural pain (principal); J45.909 Unspecified asthma, uncomplicated; K21.9 Gastro-esophageal reflux disease without esophagitis; K58.9 Irritable bowel syndrome, unspecified; Z90.49 Acquired absence of other specified parts of digestive tract; Z90.89 Acquired absence of other organs; Z98.51 Tubal ligation status; Z86.718 Personal history of other venous thrombosis and embolism
CPT/HCPCS: 36415; 71275; 80053; 81000; 82150; 83605; 83690; 85025; 94640; 94664; 96360

== ENCOUNTER 2019-12-03 13:35 | Emergency (ER) | payer OTHER ==
[~2019-12-03] VITALS: Ht 160 cm; Wt 81.4 kg
[~2019-12-03 13:35] MED LIST changes: +RT-ALBUINH INH
[2019-12-03] MEDS ORDERED: DOXY100T2 PO (14:01)
[2019-12-03] MEDS ORDERED: HYDR-3870 PO (14:01)
--- NOTE | 2019-12-03 14:05 | ED Integumentary General ---
General Chief Complaint: Skin/Wound Problems Stated Complaint: FACIAL ABSCESS Nursing Triage Note: AMB TO ED ON FRIDAY NOTICED AREA NEXT TO L SIDE OF NOSE CONCERN TODAY IT MAY NEED TO BE DRAINED. Source: patient Exam Limitations: no limitations History of Present Illness Date Seen by Provider: December 03, 2019 Time Seen by Provider: 13:57 Initial Comments To ER with reports of an abscess to the left side of the nose present for one week getting progressively larger. Timing/Duration: week Severity: moderate Associated Symptoms: No fever Allergies and Home Medications Allergies Coded Allergies: No Known Drug Allergies (Verified , 06/09/08) Home Medications Albuterol Sulfate 1 Puff Puff, 2 PUFF INH Q4H 1 PUFF = 90 MCG Prescribed by: DELORIS CERVANTES on 05/16/19 1825 Amoxicillin/Potassium Clav 1 Each Tablet, 1 EACH PO TID Prescribed by: DAVION SHEA on 05/13/19 1158 Hydrocodone Bit/Acetaminophen 1 Tab Tab, 1 TAB PO Q6H PRN for PAIN-MODERATE Prescribed by: DAVION SHEA on 05/13/19 1158 Patient Home Medication List Home Medication List Reviewed: Yes Review of Systems Review of Systems Constitutional: see HPI; No chills, No fever EENTM: see HPI Respiratory: no symptoms reported Cardiovascular: no symptoms reported Genitourinary: no symptoms reported Skin: see HPI Psychiatric/Neurological: No Symptoms Reported Endocrine: No Symptoms Reported Past Peoiyuc-Tabrey-Wepabx Hx Patient Social History Recent Foreign Travel: No Contact w/Someone Who Travel: No Recent Infectious Disease Expo: No Recent Hopitalizations: No Immunizations Up To Date Tetanus Booster (TDap): Unknown PED Vaccines UTD: Yes Date of Influenza Vaccine: Mar 29, 2014 Seasonal Allergies Seasonal Allergies: Yes Past Medical History Surgeries: Yes (wisdom teeth 2009, tubal ligation, nasal, ) Adenoidectomy, Tubal Ligation Respiratory: Yes Asthma Cardiac: Yes Deep Vein Thrombosis Neurological: No Reproductive Disorders: No Female Reproductive Disorders: Denies 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 Sexually Transmitted Disease: No HIV/AIDS: No Genitourinary: No Gastrointestinal: Yes Gastroesophageal Reflux, Hemorrhoids, Irritable Bowel Musculoskeletal: No Endocrine: No HEENT: No Loss of Vision: Denies Hearing Impairment: Denies Cancer: No Psychosocial: No Integumentary: No Blood Disorders: No Adverse Reaction/Blood Tranf: No Family Medical History Arthritis MATERNAL GDMA MATERNAL GDPA PATERNAL GDMA PATERNAL GDPA Asthma MATERNAL GDMA Glaucoma MATERNAL GDMA Neoplasm MATERNAL GDMA (BREAST AND LUNG- 52 YRS) Respiratory disorder MATERNAL GDMA (COPD AND EMPHYSEMA) No Family History of: AIDS Abdominal aortic aneurysm Jay's disease Alcoholism Alzheimer's disease Aphasia Cancer of mouth Cardiovascular disease Cataracts Colon cancer Completed stroke Congenital disease Congenital heart disease Coronary thrombosis Cystic fibrosis Deafness or hearing loss Dementia Diabetes mellitus Drug abuse Dysphasia Fibrocystic disease of breast Gastroenteritis Headache disorder Hypercholesterolemia Hypertension Infertility Kidney disease Myocardial infarction Not obtainable due to adoption Osteoporosis Parkinson's disease Prostate cancer Psychosocial problem Seizure disorder Severe allergy Thyroid disease Tuberculosis Visual disorder Heart Disease, Stroke Physical Exam Vital Signs Vital Signs - First Documented 12/03/19 13:38 Temp 36.9 Pulse 86 Resp 18 B/P (MAP) 132/80 (97) Pulse Ox 100 O2 Delivery Room Air Capillary Refill : Less Than 3 Seconds General Appearance: WD/WN, no apparent distress HEENT: PERRL/EOMI, normal ENT inspection, other (there is a nickel-sized area of erythema and induration to the left side of the nose. [place] mostly indurated but I put an ultrasound over this and there was a small fluid collection. Proceeded with incision and drainage.) Respiratory: no respiratory distress, no accessory muscle use Extremities: normal range of motion Neurologic/Psychiatric: alert, normal mood/affect, oriented x 3 Skin: normal color, warm/dry Procedures/Interventions I&D : Blade Size: 11 Progress Area was anesthetized locally with about 0.5 mL of 1% lidocaine without epinephrine. Scalpel was then used to make an incision about 3 mm in length. Culture was collected. Some curd-like material was expressed consistent with an inflamed sebaceous cyst. Suture Size: 5-0, 6-0 Progress/Results/Core Measures Results/Orders My Orders Orders - SASHA AVELAR APRN Wound Culture (12/03/19 13:57) Vital Signs/I&O 12/03/19 13:38 Temp 36.9 Pulse 86 Resp 18 B/P (MAP) 132/80 (97) Pulse Ox 100 O2 Delivery Room Air Blood Pressure Mean: 97 Departure Impression Primary Impression: Infected sebaceous cyst of skin Disposition: 01 HOME, SELF-CARE Condition: Stable Departure-Patient Inst. Decision time for Depature: 14:00 Referrals: YANELI COLLADO MD (PCP/Family) Primary Care Physician Patient Instructions: SEBACEOUS CYST-I&D Add. Discharge Instructions: 1. Warm compresses to the area. You may shower. Antibiotics and pain medication as directed. All discharge instructions reviewed with patient and/or family. Voiced understanding. Scripts Doxycycline Hyclate (Doxycycline Hyclate) 100 Mg Tablet 100 MG PO BID, #14 TAB 0 Refills Prov: SASHA AVELAR APRN 12/03/19 SASHA AVELAR APRN December 03, 2019 14:05
[2019-12-03 14:26] VITALS: BP 132/80
== END 2019-12-03 14:26 | disposition home or self-care (01) ==
LOC: EDUNIT# 13:35 → ER 13:37
DX: L72.3 Sebaceous cyst (principal); J45.909 Unspecified asthma, uncomplicated; Z86.718 Personal history of other venous thrombosis and embolism; Z98.51 Tubal ligation status; Z80.3 Family history of malignant neoplasm of breast; Z80.1 Family history of malignant neoplasm of trachea, bronchus and lung
CPT/HCPCS: 10060; 87070; 87205

== ENCOUNTER 2020-09-10 15:35 | Emergency (ER) | payer OTHER ==
[~2020-09-10] VITALS: Ht 160 cm; Wt 72.0 kg
[~2020-09-10 15:35] MED LIST changes: +DOXY100T2 PO; +HYDR-3870 PO
[2020-09-10] MEDS ORDERED: LACTATED RINGERS 1,000 ML IV STA (16:11)
[2020-09-10] MEDS ORDERED: RT-ALBUTEROL INHALER HFA (VENTOLIN HFA) 18 GM IH STA (16:11)
[2020-09-10 16:20] LABS: BASOPHILS # (AUTO) 0.1 10^3/uL (0.0-0.1); BASOPHILS % (AUTO) 1 % (0-10); EOSINOPHILS # (AUTO) 0.1 10^3/uL (0.0-0.3); EOSINOPHILS % (AUTO) 1 % (0-10); HEMATOCRIT 40 % (35-52); HEMOGLOBIN 13.6 g/dL (11.5-16.0); LYMPHOCYTES # (AUTO) 2.7 10^3/uL (1.0-4.0); LYMPHOCYTES % (AUTO) 27 % (12-44); MEAN CORPUSCULAR HEMOGLOBIN 31 pg (25-34); MEAN CORPUSCULAR HGB CONC 34 g/dL (32-36); MEAN CORPUSCULAR VOLUME 91 fL (80-99); MEAN PLATELET VOLUME 10.2 fL (9.0-12.2); MONOCYTES # (AUTO) 0.6 10^3/uL (0.0-1.0); MONOCYTES % (AUTO) 6 % (0-12); NEUTROPHILS # (AUTO) 6.6 10^3/uL (1.8-7.8); NEUTROPHILS % (AUTO) 66 % (42-75); PLATELET COUNT 254 10^3/uL (130-400)
[2020-09-10 16:23] LABS: ALBUMIN 4.4 GM/DL (3.2-4.5); CHLORIDE 105 MMOL/L (98-107); POTASSIUM 3.9 MMOL/L (3.6-5.0); SODIUM 141 MMOL/L (135-145)
[2020-09-10 16:24] LABS: CALCIUM 9.1 MG/DL (8.5-10.1)
[2020-09-10 16:26] LABS: GLUCOSE 89 MG/DL (70-105); TOTAL PROTEIN 7.6 GM/DL (6.4-8.2)
[2020-09-10 16:27] LABS: CARBON DIOXIDE 24 MMOL/L (21-32)
[2020-09-10 16:28] LABS: BILIRUBIN,TOTAL 0.4 MG/DL (0.1-1.0)
[2020-09-10 16:29] LABS: ALKALINE PHOSPHATASE 68 U/L (40-136); CREATININE SERUM 0.75 MG/DL (0.60-1.30); GFR ESTIMATED > 60
[2020-09-10 16:31] LABS: BUN/CREATININE RATIO 11
[2020-09-10 16:32] LABS: ALANINE AMINOTRANSFERASE 34 U/L (0-55)
[2020-09-10 16:33] LABS: BILIRUBIN,URINE NEGATIVE (NEGATIVE); CLARITY,URINE SL CLOUDY; COLOR,URINE YELLOW; GLUCOSE, URINE (UA) NEGATIVE (NEGATIVE); KETONES,URINE NEGATIVE (NEGATIVE); LEUKOCYTE ESTERASE ,URINE NEGATIVE (NEGATIVE); NITRITE,URINE NEGATIVE (NEGATIVE); PROTEIN,URINE NEGATIVE (NEGATIVE)
--- NOTE | 2020-09-10 16:43 | ED General ---
General Chief Complaint: Fever-Adult/Adol Stated Complaint: DIARRHEA,BODY ACHES, CHILLS FEVER Nursing Triage Note: ARRIVED VIA AMB TO ROOM 06 IN [facility]. COMPLAINS OF FEVER, BODY ACHES, COUGH, N/V/D AND LOST OF TASTE AND SMELL X1 WEEK. Nursing Sepsis Screen: Possible Severe Sepsis Risk Source of Information: Patient Exam Limitations: No Limitations History of Present Illness Date Seen by Provider: Sep 10, 2020 Time Seen by Provider: 16:02 Initial Comments Here with report of varying degrees of illness. Onset a week ago with fever and body aches that lasted a few days and then went away mostly. She was able to go back to work. Yesterday started worsening and developed diarrhea and that has worsened today. Body aches and fever also worsened. Does admit to runny nose, sore throat, cough, body aches, fever, diarrhea, declining taste and smell and decreased appetite. Fever control with ibuprofen and Tylenol. States drinking okay but not eating well. Unsure about [facility]- contacts but does work at the [employer]. Timing/Duration: 1 Week, Getting Worse Severity: Moderate Associated Systoms: No Chest Pain; Cough, Fever/Chills, Headaches, Loss of Appetite, Malaise, Nausea/Vomiting, Shortness of Air, Weakness Allergies and Home Medications Allergies Coded Allergies: acetaminophen (Verified Adverse Reaction, Unknown, NAUSEA, 09/10/20) oxycodone (Verified Adverse Reaction, Unknown, NAUSEA, 09/10/20) Home Medications No Active Prescriptions or Reported Meds Patient Home Medication List Home Medication List Reviewed: Yes Review of Systems Review of Systems Constitutional: see HPI EENTM: see HPI Respiratory: see HPI Cardiovascular: No chest pain, No edema Gastrointestinal: No constipation; diarrhea Genitourinary: No dysuria, No frequency : No LMP: Aug 31, 2020 Musculoskeletal: see HPI, muscle pain; No muscle weakness Skin: no symptoms reported Psychiatric/Neurological: No Symptoms Reported All Other Systems Reviewed Negative Unless Noted: Yes Past Kbfxurb-Ctwlla-Sezpdo Hx Past Med/Social Hx: Reviewed Nursing Past Med/Soc Hx Patient Social History Alcohol Use: Denies Use Smoking Status: Never a Smoker Recent Infectious Disease Expo: No Recent Hopitalizations: No Immunizations Up To Date Tetanus Booster (TDap): Unknown PED Vaccines UTD: Yes Date of Influenza Vaccine: Mar 29, 2014 Seasonal Allergies Seasonal Allergies: Yes Past Medical History Surgeries: Yes (wisdom teeth 2010, tubal ligation, nasal, ) Adenoidectomy, Tubal Ligation Respiratory: Yes Asthma Cardiac: Yes Deep Vein Thrombosis Neurological: No : No Reproductive Disorders: No 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 Sexually Transmitted Disease: No HIV/AIDS: No Genitourinary: No Gastrointestinal: Yes Gastroesophageal Reflux, Hemorrhoids, Irritable Bowel Musculoskeletal: No Endocrine: No HEENT: No Loss of Vision: Denies Hearing Impairment: Denies Cancer: No Psychosocial: No Integumentary: No Blood Disorders: No Adverse Reaction/Blood Tranf: No Family Medical History Arthritis MATERNAL GDMA MATERNAL GDPA PATERNAL GDMA PATERNAL GDPA Asthma MATERNAL GDMA Glaucoma MATERNAL GDMA Neoplasm MATERNAL GDMA (BREAST AND LUNG- 52 YRS) Respiratory disorder MATERNAL GDMA (COPD AND EMPHYSEMA) Heart Disease, Stroke Physical Exam-Suspected Sepsis Physical Exam Vital Signs Vital Signs - First Documented 09/10/20 15:45 Temp 37.2 Pulse 93 Resp 16 B/P (MAP) 132/86 (101) Pulse Ox 98 O2 Delivery Room Air Capillary Refill : Less Than 3 Seconds Blood Pressure Mean: 101 Height, Weight, BMI Height: 5'3.00" Weight: 160lbs. 0.0oz. [id number]; 28.00 BMI Method:Stated General Appearance: No Apparent Distress, WD/WN HEENT: PERRL/EOMI, Pharynx Normal Neck: Non Tender, Supple Respiratory: Lungs Clear, Normal Breath Sounds Cardiovascular: Regular Rate, Rhythm, No Murmur Gastrointestinal: Non Tender, Soft Extremity: Normal Range of Motion, Non Tender Neurologic/Psychiatric: Alert, Oriented x3 Skin: normal color, warm/dry Focused Exam Lactate Level 09/10/20 16:00: Lactic Acid Level 1.74 Lactic Acid Level Laboratory Tests Test 09/10/20 16:00 Lactic Acid Level 1.74 MMOL/L (0.50-2.00) Procedures/Interventions Suture Size: 5-0, 6-0 Progress/Results/Core Measures Suspected Sepsis Recent Fever Within 48 Hours: Yes Infection Criteria Present: Suspected New Infection New/Unexplained Altered Menta: No Sepsis Screen: Possible Severe Sepsis Risk SIRS Temperature: Pulse: 93 Respiratory Rate: 16 Laboratory Tests 09/10/20 16:00: White Blood Count 10.0 Blood Pressure 132 /86 Mean: 101 09/10/20 16:00: Lactic Acid Level 1.74 Laboratory Tests 09/10/20 16:00: Creatinine 0.75, INR Comment 1.0, Platelet Count 254, Total Bilirubin 0.4 Results/Orders Lab Results Laboratory Tests Test 09/10/20 16:00 Range/Units White Blood Count 10.0 4.3-11.0 10^3/uL Red Blood Count 4.38 3.80-5.11 10^6/uL Hemoglobin 13.6 11.5-16.0 g/dL Hematocrit 40 35-52 % Mean Corpuscular Volume 91 80-99 fL Mean Corpuscular Hemoglobin 31 25-34 pg Mean Corpuscular Hemoglobin Concent 34 32-36 g/dL Red Cell Distribution Width 12.5 10.0-14.5 % Platelet Count 254 130-400 10^3/uL Mean Platelet Volume 10.2 9.0-12.2 fL Immature Granulocyte % (Auto) 0 % Neutrophils (%) (Auto) 66 42-75 % Lymphocytes (%) (Auto) 27 12-44 % Monocytes (%) (Auto) 6 0-12 % Eosinophils (%) (Auto) 1 0-10 % Basophils (%) (Auto) 1 0-10 % Neutrophils # (Auto) 6.6 1.8-7.8 10^3/uL Lymphocytes # (Auto) 2.7 1.0-4.0 10^3/uL Monocytes # (Auto) 0.6 0.0-1.0 10^3/uL Eosinophils # (Auto) 0.1 0.0-0.3 10^3/uL Basophils # (Auto) 0.1 0.0-0.1 10^3/uL Immature Granulocyte # (Auto) 0.0 0.0-0.1 10^3/uL Prothrombin Time 13.5 12.2-14.7 SEC INR Comment 1.0 0.8-1.4 Activated Partial Thromboplast Time 29 24-35 SEC D-Dimer 0.32 0.00-0.49 UG/ML Urine Color YELLOW Urine Clarity SL CLOUDY Urine pH 7.0 5-9 Urine Specific [place] 1.025 H 1.016-1.022 Urine Protein NEGATIVE NEGATIVE Urine Glucose (UA) NEGATIVE NEGATIVE Urine Ketones NEGATIVE NEGATIVE Urine Nitrite NEGATIVE NEGATIVE Urine Bilirubin NEGATIVE NEGATIVE Urine Urobilinogen 0.2 < = 1.0 MG/DL Urine Leukocyte Esterase NEGATIVE NEGATIVE Urine RBC (Auto) NEGATIVE NEGATIVE Urine RBC NONE /HPF Urine WBC 2-5 /HPF Urine Crystals NONE /LPF Urine Bacteria TRACE /HPF Urine Casts NONE /LPF Urine Mucus SMALL H /LPF Urine Culture Indicated CULTURE PENDING Urine Test NEGATIVE NEGATIVE Sodium Level 141 135-145 MMOL/L Potassium Level 3.9 3.6-5.0 MMOL/L Chloride Level 105 98-107 MMOL/L Carbon Dioxide Level 24 21-32 MMOL/L Anion Gap 12 5-14 MMOL/L Blood Urea Nitrogen 8 7-18 MG/DL Creatinine 0.75 0.60-1.30 MG/DL Estimat Glomerular Filtration Rate > 60 BUN/Creatinine Ratio 11 Glucose Level 89 70-105 MG/DL Lactic Acid Level 1.74 0.50-2.00 MMOL/L Calcium Level 9.1 8.5-10.1 MG/DL Corrected Calcium 8.8 8.5-10.1 MG/DL Total Bilirubin 0.4 0.1-1.0 MG/DL Aspartate Amino Transf (AST/SGOT) 18 5-34 U/L Alanine Aminotransferase (ALT/SGPT) 34 0-55 U/L Alkaline Phosphatase 68 40-136 U/L C-Reactive Protein High Sensitivity 0.96 H 0.00-0.50 MG/DL Total Protein 7.6 6.4-8.2 GM/DL Albumin 4.4 3.2-4.5 GM/DL Procalcitonin 0.02 <0.10 NG/ML Coronavirus 2019 (VADIM) Negative Negative Micro Results Microbiology 09/10/20 Influenza Types A,B Antigen (RAYNE) - Final, Complete My Orders Orders - VANESSA HALL MD Lactated Ringers (Lr 1000 Ml Iv Solution (09/10/20 16:11) Ed Iv/Invasive Line Start (09/10/20 16:11) Albuterol Inhaler (Ventolin Hfa) (09/10/20 16:11) Cbc With Automated Diff (09/10/20 16:11) Comprehensive Metabolic Panel (09/10/20 16:11) Blood Culture (09/10/20 16:11) Sputum Culture (09/10/20 16:11) Urinalysis (09/10/20 16:11) Urine Culture (09/10/20 16:11) Protime With Inr (09/10/20 16:11) Partial Thromboplastin Time (09/10/20 16:11) Chest 1 View, Ap/Pa Only (09/10/20 16:11) Vital Signs Adult Sepsis Patie Q15M (09/10/20 16:11) O2 (09/10/20 16:11) Remove Rings In Anticipation O (09/10/20 16:11) Lactic Acid Analyzer (09/10/20 16:11) Fibrin Degradation Products (09/10/20 16:11) Procalcitonin (Pct) (09/10/20 16:11) Hs C Reactive Protein (09/10/20 16:11) Covid 19 Inhouse Test (09/10/20 16:11) Hcg,Qualitative Urine (09/10/20 16:13) Influenza A And B Antigens (09/10/20 16:31) Vital Signs/I&O 09/10/20 15:45 Temp 37.2 Pulse 93 Resp 16 B/P (MAP) 132/86 (101) Pulse Ox 98 O2 Delivery Room Air Capillary Refill : Less Than 3 Seconds Blood Pressure Mean: 101 Progress Note : Progress Note Seen and evaluated. Sepsis protocol initiated with the addition of Covid screening as well as influenza screening. LR 1 L bolus. Patient reports cough and subjective shortness of air. Albuterol inhaler 2 puffs via chamber ordered. Monitor patient. 1750: Influenza and Covid screening negative. Patient does have sinus tenderness and there is concerns about sinusitis. We will initiate amoxicillin 1000 mg p.o. 3 times daily with first dose now and the rest via prescription. She is overall doing a little bit better. Discharged home with return precautions. Patient verbalized understanding of instructions and agreement with plan. Diagnostic Imaging Diagonstic Imaging: Xray Plain Films/CT/US/NM/MRI: chest Comments [facility] [place] NAME: ZENA PORTILLO Radha [facility] REC#: [id number] PT STATUS: REG ER : 1985 PHYSICIAN: VANESSA HALL MD ADMIT DATE: 09/10/20/ER Signed Date of Exam:09/10/20 CHEST 1 VIEW, AP/PA ONLY EXAMINATION: Chest radiograph, portable AP view. DATE: 09/10/2020 4:35 PM INDICATION: 35-year-old female, sepsis. COMPARISON: CT chest May 16, 2019. FINDINGS: Heart size and mediastinal contours are unremarkable. There is no identified pneumothorax. There is no large pleural effusion. There is no identified focal airspace consolidation. IMPRESSION: No identified acute cardiopulmonary abnormality. Dictated by: Dictated on workstation # [id number] Dict: 09/10/20 1639 Trans: 09/10/201655 [facility] [id number] Interpreted by: CHANDRIKA ATKINSON MD Electronically signed by: CHANDRIKA ATKINSON MD 09/10/201655 Departure Impression Primary Impression: Acute sinusitis Qualified Codes: J01.90 - Acute sinusitis, unspecified Additional Impression: Diarrhea Qualified Codes: R19.7 - Diarrhea, unspecified Disposition: 01 HOME, SELF-CARE Condition: Stable Departure-Patient Inst. Decision time for Depature: 18:00 Referrals: YANELI COLLADO MD (PCP/Family) Primary Care Physician Patient Instructions: Fever, Adult (DC), Sinusitis, Adult (DC), Diarrhea, Adult ED Add. Discharge Instructions: All discharge instructions reviewed with patient and/or family. Voiced understanding. Take medication as directed. You may use Afrin nasal spray or the generic, 12- hour relief, 2 sprays to each nostril twice daily for 3 days only and then stop. Do not take more than 3 days. You may take spjz-nij-ebhwkjy ibuprofen on up to 600 mg every 8 hours as needed for fever or pain. You may take gbpa-[id number] Tylenol/acetaminophen up to 1000 mg every 6 hours as needed for fever or pain. Drink plenty of fluids and get plenty of rest. Return for worse pain, fever, vomiting, weakness, breathing problems or other concerns as needed. Light diet for the next few days and then advance as tolerated. Scripts Amoxicillin (Amoxicillin) 500 Mg Capsule 1000 MG PO TID, #42 CAP 0 Refills Prov: VANESSA HALL MD 09/10/20 Work/School Note: Work Release Form Date Seen in the Emergency Department: Sep 10, 2020 Return to Work: Sep 13, 2020 Restrictions: No Restrictions VANESSA HALL MD Sep 10, 2020 16:43
[2020-09-10 16:45] LABS: BACTERIA,URINE TRACE /HPF
[2020-09-10 17:01] LABS: FIBRIN DEGRADATION PRODUCTS 0.32 UG/ML (0.00-0.49); PROTHROMBIN TIME PATIENT 13.5 SEC (12.2-14.7)
[2020-09-10] MEDS ORDERED: AMOXICILLIN 500 MG (POLYMOX) CAP PO STA (17:57)
[2020-09-10] MEDS ORDERED: AMOX500C2 PO (18:03)
[2020-09-10 18:12] VITALS: BP 121/77
== END 2020-09-10 18:12 | disposition home or self-care (01) ==
LOC: EDUNIT# 15:35 → ER 15:37
DX: J01.90 Acute sinusitis, unspecified (principal); R19.7 Diarrhea, unspecified; Z20.822 Contact with and (suspected) exposure to COVID-19; Z88.5 Allergy status to narcotic agent; Z82.61 Family history of arthritis; Z80.3 Family history of malignant neoplasm of breast; Z80.1 Family history of malignant neoplasm of trachea, bronchus and lung; Z82.49 Family history of ischemic heart disease and other diseases of the circulatory system
CPT/HCPCS: 71045; 80053; 81000; 83605; 84145; 84703; 85025; 85379; 85610; 85730; 86141; 87040; 87088; 87804; 99284; U0002; 36415; 87635

== ENCOUNTER 2021-06-20 06:35 | Emergency (ER) | payer SELFPAY ==
[~2021-06-20] VITALS: Ht 160 cm; Wt 79.4 kg
[~2021-06-20 06:35] MED LIST changes: +AMOX500C2 PO
[2021-06-20] MEDS ORDERED: KETOROLAC 30 MG/ML VIAL IVP STA (06:58)
[2021-06-20] MEDS ORDERED: LACTATED RINGERS 1,000 ML IV STA (06:58)
[2021-06-20 07:10] LABS: BILIRUBIN,URINE NEGATIVE (NEGATIVE); CLARITY,URINE CLEAR; COLOR,URINE YELLOW; GLUCOSE, URINE (UA) NEGATIVE (NEGATIVE); KETONES,URINE NEGATIVE (NEGATIVE); LEUKOCYTE ESTERASE ,URINE 2+ (NEGATIVE); NITRITE,URINE NEGATIVE (NEGATIVE); PROTEIN,URINE NEGATIVE (NEGATIVE)
[2021-06-20 07:19] LABS: BASOPHILS % (AUTO) 1 % (0-10); EOSINOPHILS # (AUTO) 0.1 10^3/uL (0.0-0.3); EOSINOPHILS % (AUTO) 2 % (0-10); HEMATOCRIT 40 % (35-52); HEMOGLOBIN 13.8 g/dL (11.5-16.0); LYMPHOCYTES # (AUTO) 1.9 10^3/uL (1.0-4.0); LYMPHOCYTES % (AUTO) 36 % (12-44); MEAN CORPUSCULAR HEMOGLOBIN 31 pg (25-34); MEAN CORPUSCULAR HGB CONC 34 g/dL (32-36); MEAN CORPUSCULAR VOLUME 90 fL (80-99); MEAN PLATELET VOLUME 10.2 fL (9.0-12.2); MONOCYTES # (AUTO) 0.3 10^3/uL (0.0-1.0); MONOCYTES % (AUTO) 5 % (0-12); NEUTROPHILS # (AUTO) 2.9 10^3/uL (1.8-7.8); NEUTROPHILS % (AUTO) 56 % (42-75); PLATELET COUNT 228 10^3/uL (130-400); WHITE BLOOD COUNT 5.1 10^3/uL (4.3-11.0)
[2021-06-20 07:20] LABS: BACTERIA,URINE FEW /HPF; RBC,URINE RARE /HPF
[2021-06-20 07:33] LABS: ALBUMIN 4.2 GM/DL (3.2-4.5); POTASSIUM 3.8 MMOL/L (3.6-5.0)
[2021-06-20 07:34] LABS: CALCIUM 9.2 MG/DL (8.5-10.1)
[2021-06-20 07:35] LABS: TOTAL PROTEIN 7.2 GM/DL (6.4-8.2)
[2021-06-20 07:37] LABS: BILIRUBIN,TOTAL 0.5 MG/DL (0.1-1.0)
--- NOTE | 2021-06-20 07:38 | ED Abdominal Pain ---
General Chief Complaint: Abdominal/GI Problems Stated Complaint: SEVERE ABD PAIN Nursing Triage Note: Pt arrives via POV from home with c/o ABD pain; onset five days. Pt reports midline abdominal pain that radiates outward; denies N/V/D, denies changes in bowel, does report urinary frequency. Reports hx of appendectomy. Source of Information: Patient Exam Limitations: No Limitations History of Present Illness Date Seen by Provider: Jun 20, 2021 Time Seen by Provider: 06:52 Initial Comments Here with report of left-sided abdominal pain that radiates from left lower to suprapubic region and back. Denies nausea, vomiting or diarrhea. Does have frequency of urination without dysuria. No history of kidney stones. Did have significant appendicitis 2 years ago. Has had tubal ligation. Last menstrual period 2-1/2 weeks ago. She is sexually active and denies vaginal discharge otherwise. Timing/Duration: 3-4 Days, Getting Worse, Intermittent Severity/Quality: Moderate, Aching Location: LLQ, Suprapubic Radiation: Back Activities at Onset: None Modifying Factors: Improves With Resting Associated Symptoms: No Fever/Chills, No Nausea/Vomiting Allergies and Home Medications Allergies Coded Allergies: acetaminophen (Verified Adverse Reaction, Unknown, NAUSEA, 09/10/20) oxycodone (Verified Adverse Reaction, Unknown, NAUSEA, 09/10/20) Patient Home Medication List Home Medication List Reviewed: Yes Amoxicillin (Amoxicillin) 500 Mg Capsule, 1,000 MG PO TID Prescribed by: VANESSA HALL on 09/10/20 1803 Review of Systems Review of Systems Constitutional: see HPI; No chills, No fever EENTM: No Nose Congestion, No Throat Pain Respiratory: Denies Cough, Denies Shortness of Air Cardiovascular: No Symptoms Reported Gastrointestinal: Abdominal Pain; Denies Diarrhea, Denies Nausea Genitourinary: Frequency, Flank Pain; Denies Hematuria; Pain Musculoskeletal: see HPI; No joint pain, No muscle pain Skin: no symptoms reported All Other Systems Reviewed Negative Unless Noted: Yes Past Twkisoq-Opwosz-Srbdkr Hx Patient Social History Tobacco Use?: No Use of E-Cig and/or Vaping dev: No Substance use?: No Alcohol Use?: No Pt feels they are or have been: No Immunizations Up To Date Tetanus Booster (TDap): Unknown PED Vaccines UTD: Yes COVID19 Vaccine C Web Developer: Moderna Seasonal Allergies Seasonal Allergies: Yes Past Medical History Surgeries: Yes (wisdom teeth 2010, tubal ligation, nasal, ) Adenoidectomy, Appendectomy, Tubal Ligation Respiratory: Yes Asthma Cardiac: Yes Deep Vein Thrombosis Neurological: No Reproductive Disorders: No 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 Sexually Transmitted Disease: No HIV/AIDS: No Genitourinary: No Gastrointestinal: Yes Gastroesophageal Reflux, Hemorrhoids, Irritable Bowel Musculoskeletal: No Endocrine: No HEENT: No Loss of Vision: Denies Hearing Impairment: Denies Cancer: No Psychosocial: No Integumentary: No Blood Disorders: No Adverse Reaction/Blood Tranf: No Family Medical History Reviewed Nursing Family Hx Arthritis MATERNAL GDMA MATERNAL GDPA PATERNAL GDMA PATERNAL GDPA Asthma MATERNAL GDMA Glaucoma MATERNAL GDMA Neoplasm MATERNAL GDMA (BREAST AND LUNG- 52 YRS) Respiratory disorder MATERNAL GDMA (COPD AND EMPHYSEMA) Heart Disease, Stroke Physical Exam Vital Signs Vital Signs - First Documented 06/20/21 06:45 Temp 36.8 Pulse 92 Resp 18 B/P (MAP) 141/82 (101) Pulse Ox 99 O2 Delivery Room Air Capillary Refill : Height/Weight/BMI Height: 5'3.00" Weight: 160lbs. 0.0oz. 72.808901ob; 31.00 BMI Method:Stated General Appearance: WD/WN, mild distress HEENT: PERRL/EOMI, pharynx normal Neck: full range of motion, supple Respiratory: lungs clear, normal breath sounds Cardiovascular: regular rate, rhythm, no murmur Gastrointestinal: soft; No guarding, No rebound; tenderness (Left lower quadrant and suprapubic) Extremities: non-tender, normal inspection Back: no vertebral tenderness; No CVA tenderness (R); CVA tenderness (L) Neurologic/Psychiatric: alert, oriented x 3 Skin: normal color, warm/dry Procedures/Interventions Suture Size: 5-0, 6-0 Progress/Results/Core Measures Results/Orders Lab Results Laboratory Tests Test 06/20/21 06:48 06/20/21 07:05 Range/Units Urine Color YELLOW Urine Clarity CLEAR Urine pH 6.0 5-9 Urine Specific [place] 1.015 L 1.016-1.022 Urine Protein NEGATIVE NEGATIVE Urine Glucose (UA) NEGATIVE NEGATIVE Urine Ketones NEGATIVE NEGATIVE Urine Nitrite NEGATIVE NEGATIVE Urine Bilirubin NEGATIVE NEGATIVE Urine Urobilinogen 0.2 < = 1.0 MG/DL Urine Leukocyte Esterase 2+ H NEGATIVE Urine RBC (Auto) NEGATIVE NEGATIVE Urine RBC RARE /HPF Urine WBC 5-10 H /HPF Urine Squamous Epithelial Cells 2-5 /HPF Urine Crystals NONE /LPF Urine Bacteria FEW H /HPF Urine Casts NONE /LPF Urine Mucus NEGATIVE /LPF Urine Culture Indicated YES White Blood Count 5.1 4.3-11.0 10^3/uL Red Blood Count 4.47 3.80-5.11 10^6/uL Hemoglobin 13.8 11.5-16.0 g/dL Hematocrit 40 35-52 % Mean Corpuscular Volume 90 80-99 fL Mean Corpuscular Hemoglobin 31 25-34 pg Mean Corpuscular Hemoglobin Concent 34 32-36 g/dL Red Cell Distribution Width 12.4 10.0-14.5 % Platelet Count 228 130-400 10^3/uL Mean Platelet Volume 10.2 9.0-12.2 fL Immature Granulocyte % (Auto) 0 % Neutrophils (%) (Auto) 56 42-75 % Lymphocytes (%) (Auto) 36 12-44 % Monocytes (%) (Auto) 5 0-12 % Eosinophils (%) (Auto) 2 0-10 % Basophils (%) (Auto) 1 0-10 % Neutrophils # (Auto) 2.9 1.8-7.8 10^3/uL Lymphocytes # (Auto) 1.9 1.0-4.0 10^3/uL Monocytes # (Auto) 0.3 0.0-1.0 10^3/uL Eosinophils # (Auto) 0.1 0.0-0.3 10^3/uL Basophils # (Auto) 0.0 0.0-0.1 10^3/uL Immature Granulocyte # (Auto) 0.0 0.0-0.1 10^3/uL Sodium Level 138 135-145 MMOL/L Potassium Level 3.8 3.6-5.0 MMOL/L Chloride Level 106 98-107 MMOL/L Carbon Dioxide Level 23 21-32 MMOL/L Anion Gap 9 5-14 MMOL/L Blood Urea Nitrogen 10 7-18 MG/DL Creatinine 0.69 0.60-1.30 MG/DL Estimat Glomerular Filtration Rate 97 BUN/Creatinine Ratio 14 Glucose Level 100 70-105 MG/DL Calcium Level 9.2 8.5-10.1 MG/DL Corrected Calcium 9.0 8.5-10.1 MG/DL Total Bilirubin 0.5 0.1-1.0 MG/DL Aspartate Amino Transf (AST/SGOT) 34 5-34 U/L Alanine Aminotransferase (ALT/SGPT) 45 0-55 U/L Alkaline Phosphatase 48 40-136 U/L C-Reactive Protein High Sensitivity 0.96 H 0.00-0.50 MG/DL Total Protein 7.2 6.4-8.2 GM/DL Albumin 4.2 3.2-4.5 GM/DL My Orders Orders - VANESSA HALL MD Cbc With Automated Diff (06/20/21 06:58) Comprehensive Metabolic Panel (06/20/21 06:58) Hs C Reactive Protein (06/20/21 06:58) Ua Culture If Indicated (06/20/21 06:58) Lactated Ringers (Lr 1000 Ml Iv Solution (06/20/21 06:58) Ed Iv/Invasive Line Start (06/20/21 06:58) Ketorolac Injection (Toradol Injection) (06/20/21 06:58) Urine Bedside (06/20/21 06:58) Urine Culture (06/20/21 06:48) Ct Abd/Pelvis Wo(Kidney Stone) (06/20/21 07:33) Vital Signs/I&O 06/20/21 06:45 Temp 36.8 Pulse 92 Resp 18 B/P (MAP) 141/82 (101) Pulse Ox 99 O2 Delivery Room Air Blood Pressure Mean: 101 Progress Progress Note : Progress Note Seen and evaluated. IV, labs, LR 1 L bolus, Toradol 30 mg IV, UA and UCG ordered. Monitor patient. 0732: CT scan of the abdomen and pelvis ordered as patient has continued pain. UA does indicate mild urinary tract infection and only rare blood cells. We will go ahead and check for kidney stones and evaluate other structures with CT. This was discussed at length with patient who agrees. She states that there is just something not right. We will go ahead and check. Monitor patient. 0835: CT negative except for fat-containing umbilical hernia. This is likely related to urinary tract infection. We will treat this outpatient. I did discuss this at length with the patient. Discharged home with return precautions. Patient verbalized understanding instructions and agreement with plan. Diagnostic Imaging Diagonstic Imaging: CT Plain Films/CT/US/NM/MRI: abdomen, pelvis [facility] [place], [place] NAME: ZENA PORTILLO [facility] REC#: [id number] PT STATUS: REG ER : 1985 PHYSICIAN: VANESSA HALL MD ADMIT DATE: 06/20/21/ER Draft Date of Exam:06/20/21 CT ABD/PELVIS WO(KIDNEY STONE) PROCEDURE: CT abdomen and pelvis without contrast. TECHNIQUE: Multiple contiguous axial images were obtained through the abdomen and pelvis without the use of intravenous contrast. Auto Exposure Controls were utilized during the CT exam to meet ALARA standards for radiation dose reduction. DATE: June 20, 2021. COMPARISON: CT abdomen and pelvis May 11, 2019. INDICATION: 36-year-old female, left flank pain for 5 days. FINDINGS: There are limitations for evaluation of the abdominal organs, neoplastic processes, abscess, and limited evaluation of the vasculature relating to the lack of intravenous contrast. The visualized portions of the lung bases are clear. The heart is not enlarged. There is no pericardial effusion. The liver is unremarkable in size and contour. The gallbladder is unremarkable. There is no intrahepatic or extrahepatic bile duct dilation. The main pancreatic duct is not grossly dilated. Limited noncontrast assessment of the pancreatic parenchyma is unremarkable. The spleen is normal in size. The adrenal glands are unremarkable. Limited noncontrast assessment of the renal parenchyma is unremarkable. The urinary collecting systems are not distended. There is no identified renal or ureteral stone. Urinary bladder is unremarkable. There are sutures in the region of the cecum. The appendix is not well seen and may be surgically absent. There is no secondary finding to suggest acute appendicitis. There is a fat-containing periumbilical hernia. There is no free intraperitoneal air. There is no drainable fluid collection. There is a very small amount of free pelvic fluid which is potentially physiologic. There is no identified abnormally enlarged lymph node in the abdomen or pelvis meeting CT size criteria for adenopathy. There is no identified acute bony abnormality. IMPRESSION: CT ABDOMEN AND PELVIS. 1. No identified acute abnormality in the abdomen or pelvis. 2. Minimal free pelvic fluid which may be physiologic. 3. Fat-containing paraumbilical hernia. Dictated on workstation # [id number] Dict: 06/20/21815 Trans: 06/20/21821 [facility] [id number] Interpreted by: CHANDRIKA ATKINSON MD Electronically signed by: Departure Impression Primary Impression: Urinary tract infection Qualified Codes: N30.00 - Acute cystitis without hematuria Disposition: HOME, SELF-CARE Condition: Stable Departure-Patient Inst. Decision time for Depature: 08:36 Referrals: YANELI COLLADO MD (PCP/Family) Primary Care Physician Patient Instructions: Urinary Tract Infection, Adult (DC) Add. Discharge Instructions: All discharge instructions reviewed with patient and/or family. Voiced und erstanding. Take medications as directed. Follow-up with your doctor early next week for recheck and further evaluation. You may use ibuprofen and/or Tylenol/acetaminophen as needed for pain per package directions. Drink plenty of fluids. Return for worse pain, fever, vomiting, weakness or other concerns as needed. Scripts Phenazopyridine HCl (Phenazopyridine HCl) 100 Mg Tablet 100 MG PO TID PRN for PAIN-MILD (1-4), #6 TAB 0 Refills Prov: VANESSA HALL MD 06/20/21 Cephalexin (Cephalexin) 500 Mg Tablet 500 MG PO BID, #10 TAB 0 Refills Prov: VANESSA HALL MD 06/20/21 Copy Copies To 1: YANELI COLLADO MD, TIMOTHY D MD Jun 20, 2021 07:38
[2021-06-20 07:39] LABS: CREATININE SERUM 0.69 MG/DL (0.60-1.30)
--- NOTE | 2021-06-20 08:22 | Diagnostic Imaging Report ---
PROCEDURE: CT abdomen and pelvis without contrast. TECHNIQUE: Multiple contiguous axial images were obtained through the abdomen and pelvis without the use of intravenous contrast. Auto Exposure Controls were utilized during the CT exam to meet ALARA standards for radiation dose reduction. DATE: June 20, 2021. COMPARISON: CT abdomen and pelvis May 11, 2019. INDICATION: 36-year-old female, left flank pain for 5 days. FINDINGS: There are limitations for evaluation of the abdominal organs, neoplastic processes, abscess, and limited evaluation of the vasculature relating to the lack of intravenous contrast. The visualized portions of the lung bases are clear. The heart is not enlarged. There is no pericardial effusion. The liver is unremarkable in size and contour. The gallbladder is unremarkable. There is no intrahepatic or extrahepatic bile duct dilation. The main pancreatic duct is not grossly dilated. Limited noncontrast assessment of the pancreatic parenchyma is unremarkable. The spleen is normal in size. The adrenal glands are unremarkable. Limited noncontrast assessment of the renal parenchyma is unremarkable. The urinary collecting systems are not distended. There is no identified renal or ureteral stone. Urinary bladder is unremarkable. There are sutures in the region of the cecum. The appendix is not well seen and may be surgically absent. There is no secondary finding to suggest acute appendicitis. There is a fat-containing periumbilical hernia. There is no free intraperitoneal air. There is no drainable fluid collection. There is a very small amount of free pelvic fluid which is potentially physiologic. There is no identified abnormally enlarged lymph node in the abdomen or pelvis meeting CT size criteria for adenopathy. There is no identified acute bony abnormality. IMPRESSION: CT ABDOMEN AND PELVIS. 1. No identified acute abnormality in the abdomen or pelvis. 2. Minimal free pelvic fluid which may be physiologic. 3. Fat-containing paraumbilical hernia. Dictated by: Dictated on workstation # [id number]
[2021-06-20] MEDS ORDERED: PHEN-826 PO (08:44)
[2021-06-20] MEDS ORDERED: CEPH500T PO (08:44)
[2021-06-20 09:20] VITALS: BP 107/79
== END 2021-06-20 09:20 | disposition home or self-care (01) ==
LOC: EDUNIT# 06:35 → ER 06:39
DX: N39.0 Urinary tract infection, site not specified (principal); J45.909 Unspecified asthma, uncomplicated
CPT/HCPCS: 36415; 74176; 80053; 81000; 84703; 85025; 86141; 87088